=== PATIENT | male | born 1970 | race Caucasian/White ===

== ENCOUNTER 2020-08-14 11:32 | Emergency (ER) | payer OTHER ==
[2020-08-14 13:05] LABS: BASOPHIL 1.6 % (0-2); EOSINOPHIL 1.3 % (0-5); HCT 44.5 % (42.0-52.0); HGB 15.4 g/dl (13.2-18.0); LYMPHOCYTE 22.8 % (15-48); MCH 33.4 pg (25.0-31.0); MCHC 34.6 g/dL (32.0-36.0); MCV 96.5 fL (78.0-100.0); MONOCYTE 9.9 % (0-12); MPV 11.7 fL (6.0-9.5); NEUTROPHIL 64.1 % (41-80); NRBC 0; PLT 296 K/uL (150-400); RBC 4.61 M/uL (4.70-6.00); RDW 13.2 % (11.5-14.0)
[2020-08-14 13:23] LABS: BILIRUBIN NEGATIVE (NEGATIVE); BLOOD NEGATIVE Ery/uL (NEGATIVE); CLARITY CLEAR (CLEAR); COLOR YELLOW (YELLOW); GLUCOSE (U) NORMAL (NORMAL); LEUKOCYTES NEGATIVE Leu/uL (NEGATIVE); NITRITE NEGATIVE (NEGATIVE); PROTEIN NEGATIVE (NEGATIVE); UROBILINOGEN 0.2 mg/dL (0.2-1.0); pH 7.5 (5.0-9.0)
[2020-08-14 13:24] LABS: INR 1.01 (0.9-1.2); PROTHROMBIN TIME 12.6 SECONDS (11.4-13.6)
[2020-08-14 14:17] LABS: ALBUMIN 3.9 g/dL (3.4-5.0); ALKALINE PHOSHATASE 65 U/L (46-116); ALT 33 U/L (16-63); AST 52 U/L (15-37); BILIRUBIN - TOTAL 0.6 mg/dL (0.2-1.0); BUN 10 mg/dL (7-18); BUN/CREAT RATIO (CALC) 12.7 RATIO; CHLORIDE 100 mmol/L (98-107); CO2 (BICARBONATE) 30 mmol/L (21-32); CREATININE 0.79 mg/dL (0.67-1.17); GLOBULIN (CALCULATION) 3.3 g/dL; GLUCOSE 94 mg/dL (74-106); LDH 153 U/L (85-227); LIPASE 191 U/L (73-393); MAGNESIUM 2.4 mg/dL (1.8-2.4); POTASSIUM 4.6 mmol/L (3.5-5.1); TOTAL PROTEIN 7.2 g/dL (6.4-8.2)
[2020-08-14 15:19] LABS: AMPHETAMINES NEGATIVE (NEGATIVE); BARBITURATES NEGATIVE (NEGATIVE); ECSTASY (MDMA) NEGATIVE (NEGATIVE); MARIJUANA (THC) NEGATIVE (NEGATIVE); METHADONE NEGATIVE (NEGATIVE); OPIATES NEGATIVE (NEGATIVE); OXYCODONE NEGATIVE (NEGATIVE)
[2020-08-14] MEDS ORDERED: ZOFRAN4 M1 PO (16:17)
[2020-08-14] MEDS ORDERED: BENTYL10 MG PO (16:17)
== END 2020-08-14 17:34 | disposition home or self-care (01) ==
LOC: FER 11:32
PROVIDERS: Emergency Medicine
DX: R10.9 Unspecified abdominal pain (principal); R11.2 Nausea with vomiting, unspecified; I10 Essential (primary) hypertension; Z88.8 Allergy status to other drugs, medicaments and biological substances
CPT/HCPCS: 36415; 80053; 80178; 80305; 81003; 83605; 83615; 83690; 83735; 84145; 84443; 84484; 85025; 85610; 93005; G0480; J1170; J2405; J3411; J3475; J7030; Q9967